=== PATIENT | female | born 1975 | race Caucasian/White ===

== ENCOUNTER 2021-02-04 12:50 | Outpatient (REF) | payer MEDICAID, SELFPAY ==
[2021-02-04 14:43] LABS: Bilirubin Negative (Negative); Blood Negative (Negative); Clarity Clear (Clear); Glucose Negative (Negative); Ketones Negative (Negative); Leukocyte Esterase Negative (Negative); Nitrite Negative (Negative); Specific Gravity 1.025 (1.005-1.025); Urobilinogen 0.2 EU/dL (Up TO 0.2)
== END 2021-02-04 12:51 | disposition home or self-care (01) ==
LOC: LBN 12:50
PROVIDERS: PCP Nurse Practitioner Family; Visit Provider Radiology Radiation Oncology
DX: R30.0 Dysuria (principal)
CPT/HCPCS: 81003